=== PATIENT | female | born 1955 | race Caucasian/White ===

== ENCOUNTER 2021-07-08 14:45 | Outpatient (CLI) | payer MEDICARE, SELFPAY ==
--- NOTE | 2021-07-08 14:48 | MM_ITS ---
WS: [id number] BILATERAL SCREENING DIGITAL MAMMOGRAM WITH CAD HISTORY: SCREENING COMPARISON: 10/04/2017, 11/12/2017 and 05/12/2007 Bilateral CC and MLO views submitted. Computer aided detection analyzed. Breast composition: There are scattered areas of fibroglandular density. No suspicious masses, microc alcifications or architectural distortion. Improving dense linear asymmetry posterior to the RIGHT ni pple since the prior exam. Benign calcifications. Multiple prior biopsy clips in the RIGHT breast. MM/[id number] IMPRESSION: BI-RADS: 2-Benign FOLLOW UP: 1 Year Follow-up
--- NOTE | 2021-07-08 15:16 | XR_ITS ---
WS: [id number] SCREENING DEXA SCAN [employer] CLINICAL INFORMATION: POSTMENOPAUSAL COMPARISON: None. FINDINGS: The L1-L4 bone mineral density measures 1.111 g/cm2. This corresponds to a T score score of -0.6 and Z score of 0.5. Left femoral neck bone mineral density measures 0.930 g/cm2. This corresponds to a T score of -0.6 an d Z score of 0.3. Right femoral neck bone mineral density measures 0.933 g/cm2. This corresponds to a T score -0.6of an d Z score of 0.4. Mean femoral neck bone mineral density measures 0.931 g/cm2. This corresponds to a T score of -0.6 an d Z score of 0.4. XR/XR DEXA axial skeleton* [id number] IMPRESSION: Normal bone mineralization. Patient's FRAX calculated 10 year probability for major osteoporotic fracture i s 10.5 % and osteoporotic hip fracture is 1.6%.
== END 2021-07-08 14:46 | disposition home or self-care (01) ==
LOC: RADSHAW 14:47
PROVIDERS: PCP Family Medicine; Visit Provider Family Medicine
DX: Z12.31 Encounter for screening mammogram for malignant neoplasm of breast (principal); Z78.0 Asymptomatic menopausal state
CPT/HCPCS: 77067; 77080

== ENCOUNTER → 2021-12-09 16:07 | Outpatient (BNVA) | payer MEDICARE, SELFPAY | PROVIDERS: PCP Family Medicine; Visit Provider Nurse Practitioner Family | DX: Z20.822 Contact with and (suspected) exposure to COVID-19 (principal) | CPT/HCPCS: 87635 ==

== ENCOUNTER 2022-01-19 20:04 | Emergency (ER) | payer MEDICARE, SELFPAY ==
--- NOTE | 2022-01-19 20:11 | ECG_ITS ---
[facility] Test Date: 2022-01-19 Pat Name: Shanika Alfonso Department: Room: Gender: Female Senior Treasury Analyst: : 1955 Requested By: Essence Javier Order Number: [id number] Elizabeth MD: Zeina Tablert M.D. Measurements Intervals [place] Rate: 143 P: AL: QRS: 43 QRSD: 72 T: 66 QT: 271 QTc: 418 Interpretive Statements SINUS TACHYCARDIA LOW QRS VOLTAGE IN PRECORDIAL LEADS [QRS DEFLECTION < 1.0 mV IN CHEST LEADS] MINIMAL ST DEPRESSION [0.025+ mV ST DEPRESSION] ABNORMAL RHYTHM ECG No previous ECG available for comparison Electronically Signed On 01-21-2022 5:42:38 AUTO INSPECTION SPECIALIST by Zeina Talbert M.D. [id number]
[2022-01-19 20:15] VITALS: BP 169/117; PULSE 232; RESP 18; TEMP 36.7; O2SAT 99; BMI 30.8
--- NOTE | 2022-01-19 20:23 | PC.NURSE ---
patient received with c/o SVT history of same, IV placed tele in place, MD at bedside medications given.
[2022-01-19] MEDS: sodium chloride 0.9% 1,000 ML 999 ML IV (20:27)
--- NOTE | 2022-01-19 20:27 | ED_ITS ---
HPI - General Adult General: Chief complaint: Chest Pain Stated complaint: SVT Time Seen by Provider: 01/19/22 20:12 History of Present Illness: 66-year-old female with history of HTN, hypothyroidism, SVT presenting to the emergency room with acute onset of palpitation which occurred 1 hour 30 minutes ago. Patient was at home when suddenly she began feeling palpitations. Patient does not know what the trigger for SVT is. Patient said last time she had SVT was done over 10 years ago. Patient denies any active chest pain, shortness breath, lightheadedness, nausea/vomiting, diarrhea melena hematochezia. No abdominal complaints or complaints. Patient denies any active drug use Onset:1 hr 30 minutes ago Duration:ongoing Location:home Severity:moderate/severe Associated symptoms: Reports palpitations; Deny chest pain, dyspnea, nausea, rash or vomiting Review of Systems Const: Denies: fever(s) or chills Eyes: Denies: change in vision ENMT: Denies: mouth pain Card: Reports: palpitations; Denies: chest pain Resp: Denies: dyspnea or non-productive cough GI: Denies: abdominal pain, nausea, vomiting or diarrhea : Denies: dysuria Musc: Denies: extremity pain Skin/Breast: Denies: rash or new lesions Neuro: Denies: weakness in extremities Psych: Reports: other (Normal mood) Slim/Lymph: Denies: easy bruising PFS ED PFSH: Medical History (Updated 01/19/22 @ 21:57 by Emil Valadez MD) Hypertension SVT (supraventricular tachycardia) Social History (Updated 01/19/22 @ 20:30 by Emil Valadez MD) Smoking and tobacco status: never smoked Alcohol intake: never Substance/Drug Use: never Physical Exam Const: COMMON NORMALS: alert HENMT: COMMON NORMALS: atraumatic HEAD & SCALP: atraumatic MOUTH: moist mucous membranes not abnormal Eye: COMMON NORMALS: EOMs intact bilaterally and conjunctivae normal CONJUNCTIVA: Yes conjunctivae normal Neck/C-Spine: COMMON NORMALS: full ROM and supple Resp: COMMON NORMALS: normal respiratory effort and clear to auscultation bilaterally AUSCULTATION: clear to auscultation bilaterally Cardio: RATE: tachycardic GI: COMMON NORMALS: Soft to palpation and non-tender PALPATION: Yes Soft to palpation Extremity: COMMON NORMALS: full ROM Neuro: SENSORIUM/ORIENTATION: Yes alert MOTOR EXAM: No Abnormal motor strength present and Other motor observations present (no focal motor deficits) Psych: COMMON NORMALS: speech normal SPEECH: Yes normal speech MOOD & AFFECT: Yes euthymic mood Course Vital Signs: Vital signs: Vital Signs Temperature 98.1 F 01/19/22 20:15 Pulse Rate 118 H 01/19/22 20:57 Respiratory Rate 21 H 01/19/22 20:57 Blood Pressure 129/80 01/19/22 20:57 Pulse Oximetry 97 01/19/22 20:57 MDM - General Adult Medical Decision Making 66-year-old female with history of recurrent SVT presented to emergency room with concerns for new onset of SVT. In triage, patient was noted to have heart rate over 200. Initial EKG showed SVT. I have attempted vagal maneuver x2 without any success. Patient received 6 mg adenosine with improvement heart rate to the 150s now in regular narrow sinus tachycardia. Patient received 30mg of dilt and 5mg of metoprolol and 2mg of ativan with improvement in HR. on lab work, patient's TSH T4 within normal limit. D-dimer the lower normal limit. Patient has a history of hyperglycemia had a glucose 418. Findings was discussed with pain. Patient also had mild anion gap likely secondary to ongoing SVT for the last 1 hour and half. I do not suspect that this anion gap is secondary to DKA patient has no other manifestation including nausea/vomiting, polyuria and has type 2 diabetes (with no prior hx of DKA). Instructed patient to follow-up closely with PCP to get h er glucose adjusted. I have given patient follow up with our case management assistant to be seen by our outpati ent Cardiology for management of SVT. Patient aware of a call from our case management assistant to schedule for appointment(s) and verbalizes understanding of the importance of following up. I have given patient follow up with our case management assistant to be seen by our outpatient PCP for management of hyperglycemia as patient is on metformin only. Patient aware of a call from our case management assistant to schedule for appointment(s) and verbalizes understanding of the importance of following up. Rx metoprolol 12.5mg BID for prevention of SVT Disposition: Discharge. Patient counseled regarding diagnostic impression, tr eatment plan. Patient given ED strict return precautions to return for continuation, worsening, or development of new symptoms. Instructed to f/u w/ Cardiology regarding symptoms today. Patient verbalized understanding. Lab Data : 01/19/22 21:07 01/19/22 21:07 Laboratory Results WBC 13.8 10^3/uL (4.0-10.0) H 01/19/22 21:07 RBC 4.31 10^6/uL (4.1-5.3) 01/19/22 21:07 Hgb 13.3 g/dL (11.5-15.3) 01/19/22 21:07 Hct 41.3 % (37.0-47.0) 01/19/22 21:07 MCV 95.8 fl (81-99) 01/19/22 21:07 MCH 30.9 pg (28.0-34.0) 01/19/22 21:07 MCHC 32.2 g/dL (30.0-36.0) 01/19/22 21:07 RDW 12.8 % (12.1-15.1) 01/19/22 21:07 Plt Count 280 10^3/cmm (130-400) 01/19/22 21:07 MPV 9.9 fL (7.4-10.4) 01/19/22 21:07 Neut % (Auto) 80.2 % 01/19/22 21:07 Lymph % (Auto) 10.3 % 01/19/22 21:07 [place] % (Auto) 7.6 % 01/19/22 21:07 Eos % (Auto) 1.0 % 01/19/22 21:07 Baso % (Auto) 0.4 % 01/19/22 21:07 Neut # (Auto) 11.02 10^3/uL (1.8-7.7) H 01/19/22 21:07 Lymph # (Auto) 1.4 10^3/uL (0.8-4.8) 01/19/22 21:07 [place] # (Auto) 1.1 10^3/uL (0.2-0.9) H 01/19/22 21:07 Eos # (Auto) 0.1 10^3/uL (0.0-0.8) 01/19/22 21:07 Baso # (Auto) 0.1 10^3/uL (0.0-0.1) 01/19/22 21:07 Nucleated RBC % (auto) 0 % 01/19/22 21:07 Nucleated RBCs # 0.0 /100WBC 01/19/22 21:07 D-Dimer 0.43 ug/mIFEU (0-0.59) 01/19/22 21:07 Sodium 133 mmol/L (136-145) L 01/19/22 21:07 Potassium 4.5 mmol/L (3.5-5.1) 01/19/22 21:07 Chloride 98 mmol/L (98-107) 01/19/22 21:07 Carbon Dioxide 16 mmol/L (22-29) L 01/19/22 21:07 Anion Gap 23.5 (5-19) H 01/19/22 21:07 BUN 16 mg/dL (8-23) 01/19/22 21:07 Creatinine 1.0 mg/dL (0.5-0.9) H 01/19/22 21:07 GFR Calculation 55.1 mL/min (90-130) L 01/19/22 21:07 Glucose 416 mg/dL (65-115) H 01/19/22 21:07 Calculated Osmolality 295 mOsm/kg (285-295) 01/19/22 21:07 Calcium 8.7 mg/dL (8.5-10.5) 01/19/22 21:07 Magnesium 1.8 mg/dL (1.7-2.3) 01/19/22 21:07 TSH 0.52 uIU/mL (0.27-4.20) 01/19/22 21:07 Discharge Plan Discharge Patient Disposition: Home Clinical Impression: SVT (supraventricular tachycardia), Hyperglycemia Condition: Stable Prescriptions: New metoprolol succinate 25 mg tablet extended release 24 hr 12.5 mg PO BID Qty: 14 0RF No Action metformin 500 mg tablet 500 mg PO BID 0RF lisinopril 5 mg tablet 5 mg PO DAILY 0RF Discharge Orders: Discharge ED (Routine); Ordered 01/19/22 Ordered By: Emil Valadez Referrals: Stuart Castro MD [Primary Care Provider] - Discharge Diet: Advance as tolerated Discharge Activity: Increase activity as tolerated Patient Instructions: Tachycardia (ED) Activity Restrictions/Additional Instructions: Our case management assistant will have you follow-up with Cardiology in the next few days for your symptoms. You would be expected to have a phone call with our case management assistant who will put you on the schedule. You can expect a call from us in the next 2-3 days. If you don't hear from us, call us back in the emergency room at [phone]. Our case management assistant will have you follow-up with a primary care provider in the next few days for glucose control. You would be expected to have a phone call with our case management assistant who will put you on the schedule. You can expect a call from us in the next 2-3 days. If you don't hear from us, call us back in the emergency room at [phone]. Coding Level of Care Code ED Pcmh Specialist for Maria Teresa Valdez Exam Comprehensive
[2022-01-19] MEDS: adenosine 3 mg/mL SDV 2mL 6 MG IVP (20:28)
[2022-01-19] MEDS: dilTIAZem 60 mg Tablet PO (20:28)
[2022-01-19 20:36] VITALS: BP 114/80; PULSE 120; RESP 20; O2SAT 95
[2022-01-19 20:57] VITALS: BP 129/80; PULSE 118; RESP 21; O2SAT 97
[2022-01-19 21:16] LABS: Basophils # 0.1 10^3/uL (0.0-0.1); Basophils % 0.4 %; Eosinophils # 0.1 10^3/uL (0.0-0.8); Hematocrit 41.3 % (37.0-47.0); Hemoglobin 13.3 g/dL (11.5-15.3); Lymphocytes # 1.4 10^3/uL (0.8-4.8); Lymphocytes % 10.3 %; Mean Corpuscular HGB Conc 32.2 g/dL (30.0-36.0); Mean Corpuscular Hemoglobin 30.9 pg (28.0-34.0); Mean Corpuscular Volume 95.8 fl (81-99); Mean Platelet Volume 9.9 fL (7.4-10.4); Monocytes # 1.1 10^3/uL (0.2-0.9); Monocytes % 7.6 %; Neutrophils # 11.02 10^3/uL (1.8-7.7); Neutrophils % 80.2 %; Nucleated Red Blood Cells % 0 %; Platelet Count 280 10^3/cmm (130-400); Red Blood Count 4.31 10^6/uL (4.1-5.3); Red Cell Distribution Width 12.8 % (12.1-15.1); White Blood Count 13.8 10^3/uL (4.0-10.0)
[2022-01-19 21:30] LABS: D Dimer 0.43 ug/mIFEU (0-0.59)
[2022-01-19] MEDS: metoprolol tartrate 1 mg/1 mL SDV 5 mL 5 MG IVP (21:38)
[2022-01-19] MEDS: LORazepam 2 mg/mL INJ 1 mL IVP (21:38)
[2022-01-19 21:47] LABS: Blood Urea Nitrogen 16 mg/dL (8-23); Calcium 8.7 mg/dL (8.5-10.5); Carbon Dioxide 16 mmol/L (22-29); Chloride 98 mmol/L (98-107); Glomerular Filtration Rate 55.1 mL/min (90-130); Glucose 416 mg/dL (65-115); Magnesium 1.8 mg/dL (1.7-2.3); Potassium 4.5 mmol/L (3.5-5.1); Thyroid Stimulating Hormone 0.52 uIU/mL (0.27-4.20)
[2022-01-19 21:53] LABS: Anion Gap 23.5 (5-19); Osmolality Calculated 295 mOsm/kg (285-295); Sodium 133 mmol/L (136-145)
[2022-01-19 22:02] VITALS: PULSE 91
[2022-01-19 22:18] VITALS: BP 135/79; PULSE 91; RESP 18; TEMP 36.4; O2SAT 98
[2022-01-19 22:40] LABS: Free T4 Free Thyroxine 1.73 ng/dL (0.82-1.77)
--- NOTE | 2022-01-20 13:31 | DCPLANNER ---
Addendum entered by Mable Galindo 02/27/22 09:20: Patient had a follow up appointment scheduled with heart care - patient did attend Original Note: manager resource had message to schedule a follow up appointment for patient with heart care. manager resource called [facility], spoke with Heidi, gave clinic patients information. A follow up appointment was scheduled for Wednesday, February 18, 2022 at 12:[address] Gotti. manager resource called patient unable to speak with patient or leave a voicemail for patient on this number [phone]. manager resource called husbands phone [phone], left a voicemail with appointment information. manager resource also left message that if patient would like help in getting a follow up appointment scheduled with primary care, that binder caser would be happy to help.
== END 2022-01-19 22:19 | disposition home or self-care (01) ==
PROVIDERS: Emergency Provider Emergency Medicine; PCP Family Medicine
DX: I47.1 Supraventricular tachycardia (principal); R73.9 Hyperglycemia, unspecified; Z79.84 Long term (current) use of oral hypoglycemic drugs; I10 Essential (primary) hypertension
CPT/HCPCS: 80048; 83735; 84439; 84443; 85025; 85378; 93005; 96374; 96375; 99284; J0153; J2060; J3490; J7030

== ENCOUNTER → 2022-02-18 11:26 | Outpatient (BNVA) | payer MEDICARE, SELFPAY | PROVIDERS: PCP Family Medicine; Visit Provider Internal Medicine | DX: R06.02 Shortness of breath (principal); R07.9 Chest pain, unspecified; I47.1 Supraventricular tachycardia; I10 Essential (primary) hypertension | CPT/HCPCS: 99204 ==

== ENCOUNTER 2022-03-23 12:59 | Outpatient (CLI) | payer MEDICARE, SELFPAY ==
--- NOTE | 2022-03-23 13:45 | USCV_ITS ---
Shanika Alfonso Age: 66 Gender: F : 1955 Exam Date: 03/23/2022 13:38 Ordering Phys: Gabriel Krueger M.D ([email or web address]) Technologist: Nilam Maurice Exam Location: [facility] [place] Indication: CHEST PAIN AND SOB BP: 130 / 80 HR: 88 Rhythm: Sinus Technical Quality: Adequate MEASUREMENTS (Male / Female) Normal Values 2D ECHO LV Diastolic Diameter PLAX 3.6 cm 4.2 - 5.9 / 3.9 - 5.3 cm LV Systolic Diameter PLAX 3.0 cm LV Chamber Size 2.8 cm IVS Diastolic Thickness 0.8 cm 0.6 - 1.0 / 0.6 - 0.9 cm IVS Systolic Thickness 1.0 cm LVPW Diastolic Thickness 0.9 cm 0.6 - 1.0 / 0.6 - 0.9 cm LVPW Systolic Thickness 1.0 cm RV Chamber Size 3.2 cm LVOT Diameter 2.0 cm LV Ejection Fraction 2D Teich 35.6 % LA Diameter 3.1 cm LA Width 3.1 cm LA Height 2.9 cm RA Width 3.5 cm RA Height 2.9 cm Aorta at Sinotubular Diameter 2.6 cm IVC Diameter 1.9 cm M-MODE Aortic Annulus Diameter 2.8 cm LA Ao Ratio MM 1.2 MV E Point Septal Separation 0.5 cm DOPPLER AV Peak Velocity 141.0 cm/s LVOT Peak Velocity 87.0 cm/s AV Area Cont Eq vti 1.8 cm squared AV Area Cont Eq pk 2.0 cm squared MV Area PHT 5.6 cm squared Mitral E to A Ratio 0.7 MV E' Velocity 46.0 cm/s Mitral E to MV E' Ratio 11.5 Mitral E to LV E' Lateral Ratio 9.2 Mitral E to LV E' Septal Ratio 15.3 TR Peak Velocity 189.6 cm/s TR Peak Gradient 14.4 mmHg TR Mean Velocity 137.7 cm/s TR Mean Gradient 8.9 mmHg TR Velocity Time Integral 51.0 cm TV Peak E Velocity 61.0 cm/s Right Atrial Pressure 3.0 mmHg Pulmonary Artery Systolic Pressu 17.4 mmHg PV Peak Velocity 61.0 cm/s RV Acceleration Time 0.1 s RV Ejection Time 0.3 s RV AcT/ET 0.3 FINDINGS Left Ventricle Normal left ventricular size. LV systolic function is normal with EF of 50-55%. No regional wall motion abnormalities. Grade 1 diastolic dysfunction Right Ventricle The right ventricle is normal in size and function. Right Atrium The right atrium is normal in size. Left Atrium The left atrium is normal in size. Mitral Valve Thickened mitral valve without significant stenosis or prolapse. There is no mitral regurgitation. Aortic Valve Structurally normal aortic valve without significant sclerosis or stenosis. There is no aortic regurgitation. Tricuspid Valve Structurally normal tricuspid valve without significant stenosis. Trace tricuspid regurgitation. Pulmonary artery systolic pressure is normal. Pulmonic Valve Not well visualized Pericardium Normal pericardium without effusion. Aorta Normal ascending aorta dimension. CONCLUSIONS LV systolic function is normal with EF of 50-55%. Grade 1 diastolic dysfunction Thickened mitral valve Trace tricuspid regurgitation No comparison studies are available Gabriel Krueger MD (Electronically Signed) Final Date: 04 Apr 2022 19:29 S
== END 2022-03-23 13:00 | disposition home or self-care (01) ==
LOC: RAD 13:00
PROVIDERS: PCP Family Medicine; Visit Provider Internal Medicine
DX: R06.02 Shortness of breath (principal); R07.9 Chest pain, unspecified; I51.9 Heart disease, unspecified
CPT/HCPCS: 93306

== ENCOUNTER → 2022-05-18 11:22 | Outpatient (BNVA) | payer MEDICARE, SELFPAY | PROVIDERS: PCP Family Medicine; Visit Provider Family Medicine | DX: E10.9 Type 1 diabetes mellitus without complications (principal); Z51.81 Encounter for therapeutic drug level monitoring; E03.9 Hypothyroidism, unspecified | CPT/HCPCS: 80053; 80061; 83036; 84443 ==

== ENCOUNTER → 2022-08-19 13:32 | Outpatient (BNVA) | payer MEDICARE, SELFPAY | PROVIDERS: PCP Family Medicine; Visit Provider Internal Medicine | DX: I47.1 Supraventricular tachycardia (principal); I10 Essential (primary) hypertension | CPT/HCPCS: 99214 ==

== ENCOUNTER → 2022-11-20 09:13 | Outpatient (BNVA) | payer MEDICARE, OTHER, SELFPAY | PROVIDERS: PCP Family Medicine; Visit Provider Family Medicine | DX: I10 Essential (primary) hypertension (principal); E11.9 Type 2 diabetes mellitus without complications; E03.9 Hypothyroidism, unspecified; I47.1 Supraventricular tachycardia | CPT/HCPCS: 80061; 83036; 84443 ==

== ENCOUNTER → 2023-05-19 12:42 | Outpatient (BNVA) | payer MEDICARE, OTHER, SELFPAY | PROVIDERS: PCP Family Medicine; Visit Provider Internal Medicine | DX: I47.1 Supraventricular tachycardia (principal); I10 Essential (primary) hypertension | CPT/HCPCS: 99214 ==

== ENCOUNTER → 2023-05-26 08:06 | Outpatient (BNVA) | payer MEDICARE, OTHER, SELFPAY | PROVIDERS: PCP Family Medicine; Visit Provider Family Medicine | DX: E03.9 Hypothyroidism, unspecified (principal); E11.9 Type 2 diabetes mellitus without complications; E78.5 Hyperlipidemia, unspecified; I10 Essential (primary) hypertension; I47.1 Supraventricular tachycardia | CPT/HCPCS: 80053; 80061; 83036; 84443 ==

== ENCOUNTER 2023-08-23 07:41 | Outpatient (CLI) | payer MEDICARE, OTHER, SELFPAY ==
--- NOTE | 2023-08-23 07:46 | MM_ITS ---
WS: [id number] BILATERAL SCREENING DIGITAL TOMOSYNTHESIS MAMMOGRAM WITH CAD HISTORY: Z00.00 - Encounter for general adult medical examination ... COMPARISON: 07/08/2021, 11/12/2017 Bilateral CC and MLO views with tomosynthesis and synthetic mammography submitted. Computer aided det ection analyzed. Breast composition: There are scattered areas of fibroglandular density. No suspicious masses, microc alcifications or architectural distortion. Biopsy clip and marked asymmetry in the anterior to mid RI GHT breast is stable. There are numerous bilateral calcifications within each breast. Some of these c alcifications are new but they are very coarse suggesting they're benign. IMPRESSION: MM/[place] [id number] BI-RADS: 2-Benign FOLLOW UP: 1 Year Follow-up
== END 2023-08-23 07:42 | disposition home or self-care (01) ==
PROVIDERS: PCP Family Medicine; Visit Provider Family Medicine
DX: Z12.31 Encounter for screening mammogram for malignant neoplasm of breast (principal)
CPT/HCPCS: 77063; 77067

== ENCOUNTER → 2023-11-25 07:31 | Outpatient (BNVA) | payer MEDICARE, OTHER, SELFPAY | PROVIDERS: PCP Family Medicine; Visit Provider Family Medicine | DX: E78.5 Hyperlipidemia, unspecified (principal); E11.9 Type 2 diabetes mellitus without complications; E03.9 Hypothyroidism, unspecified; I10 Essential (primary) hypertension; E78.9 Disorder of lipoprotein metabolism, unspecified | CPT/HCPCS: 80053; 80061; 83036; 84443 ==

== ENCOUNTER → 2024-02-09 12:48 | Outpatient (BNVA) | payer MEDICARE, OTHER, SELFPAY | PROVIDERS: PCP Family Medicine; Visit Provider Internal Medicine | DX: I47.10 Supraventricular tachycardia, unspecified (principal); I10 Essential (primary) hypertension | CPT/HCPCS: 99214 ==

== ENCOUNTER → 2024-05-23 07:59 | Outpatient (BNVA) | payer MEDICARE, OTHER, SELFPAY | PROVIDERS: PCP Family Medicine; Visit Provider Family Medicine | DX: I10 Essential (primary) hypertension (principal); N18.9 Chronic kidney disease, unspecified; R73.03 Prediabetes; R53.83 Other fatigue; E78.5 Hyperlipidemia, unspecified; E11.9 Type 2 diabetes mellitus without complications | CPT/HCPCS: 80053; 80061; 83036; 84443; 85025 ==

== ENCOUNTER → 2024-11-08 14:06 | Outpatient (BNVA) | payer MEDICARE, OTHER, SELFPAY | PROVIDERS: PCP Family Medicine; Visit Provider Internal Medicine | DX: I47.10 Supraventricular tachycardia, unspecified (principal); I10 Essential (primary) hypertension | CPT/HCPCS: 99213 ==

== ENCOUNTER → 2024-11-27 08:46 | Outpatient (BNVA) | payer MEDICARE, OTHER, SELFPAY | PROVIDERS: PCP Family Medicine; Visit Provider Family Medicine | DX: N18.9 Chronic kidney disease, unspecified (principal); E11.9 Type 2 diabetes mellitus without complications; I10 Essential (primary) hypertension; R53.83 Other fatigue | CPT/HCPCS: 80053; 80061; 83036; 84443; 85025 ==

== ENCOUNTER → 2025-06-01 08:06 | Outpatient (BNVA) | payer MEDICARE, OTHER, SELFPAY | PROVIDERS: PCP Family Medicine; Visit Provider Family Medicine | DX: I10 Essential (primary) hypertension (principal); E11.9 Type 2 diabetes mellitus without complications; E78.5 Hyperlipidemia, unspecified | CPT/HCPCS: 80053; 80061; 83036 ==

== ENCOUNTER → 2025-10-11 14:22 | Outpatient (BNVA) | payer MEDICARE, OTHER, SELFPAY | PROVIDERS: PCP Family Medicine; Visit Provider Internal Medicine | DX: I47.10 Supraventricular tachycardia, unspecified (principal); I10 Essential (primary) hypertension | CPT/HCPCS: 99214 ==